=== PATIENT | female | born 1950 | race Caucasian/White ===

== ENCOUNTER 2019-03-10 17:42 | Emergency (ER) | payer OTHER ==
[~2019-03-10] VITALS: Ht 142.2 cm; Wt 55.9 kg
[2019-03-10 17:57] VITALS: Ht 142.2 cm; Wt 55.9 kg
[2019-03-10] MEDS ORDERED: ONDANSETRON 4 MG INJ IV STA (18:08)
[2019-03-10] MEDS ORDERED: morphine 4 MG/ML VIAL IV STA (18:08)
[2019-03-10] MEDS ORDERED: POTASSIUM CHLORIDE (SR) 20 MEQ TAB PO STA (20:31)
[2019-03-10] MEDS ORDERED: ONDA4TAB14 PO (20:34)
[2019-03-10] MEDS ORDERED: IBUP-1542 PO (20:34)
--- NOTE | 2019-03-10 20:53 | ERD ---
ER Documentation Chief Complaint Chief Complaint n/v & crespo x 1 day. vomited en route HPI Patient is a 68-year-old female who presents with headache and abdominal pain. The patient had upper epigastric abdominal pain. The patient was brought in by ambulance. She said this started a few days ago. She tried Tylenol for pain. She has had no fevers. Upon review of old medical records this is the patient's second visit to the ER since October 2018. ROS All systems reviewed and are negative except as per history of present illness. Medications Home Meds Active Scripts Ondansetron (Ondansetron Odt) 4 Mg Tab.rapdis, 4 MG PO Q6H PRN for NAUSEA AND/OR VOMITING, #10 TAB Prov:DONTAE LITTLEJOHN MD 03/10/19 Ibuprofen* (Motrin*) 600 Mg Tab, 600 MG PO Q6H PRN for PAIN AND OR ELEVATED TEMP, #30 TAB Prov:DONTAE LITTLEJOHN MD 03/10/19 Allergies Allergies: Coded Allergies: No Known Allergy (Unverified , 10/22/18) PMhx/Soc History of Surgery: Yes (right abdomen) Anesthesia Reaction: No Hx Neurological Disorder: No Hx Respiratory Disorders: No Hx Cardiac Disorders: No Hx Psychiatric Problems: No Hx Miscellaneous Medical Probl: Yes (DM) Hx Alcohol Use: No Hx Substance Use: No Hx Tobacco Use: No Smoking Status: Never smoker FmHx Family History: No diabetes Physical Exam Vitals Vital Signs Date Temp Pulse Resp B/P (MAP) Pulse Ox O2 O2 Flow FiO2 Time Delivery Rate 03/10/19 87 12 136/71 100 Room Air 19:53 (92) 03/10/19 98.8 63 20 175/79 100 Nasal 18:37 (111) Cannula 03/10/19 97.6 68 18 172/96 98 17:57 (121) Physical Exam Const: No acute distress Head: Atraumatic Eyes: Normal Conjunctiva ENT: Normal External Ears, Nose and Mouth. Neck: Full range of motion. No meningismus. Resp: Clear to auscultation bilaterally Cardio: Regular rate and rhythm, no murmurs Abd: Soft, diffuse tenderness to palpation without rebound or guarding Skin: No petechiae or rashes Back: No midline or flank tenderness Ext: No cyanosis, or edema Neur: Awake and alert, cranial nerves II through XII are intact, strength is 5 out of 5 in all 4 extremities Psych: Normal Mood and Affect Result Diagram: 03/10/19182903/10/191829 Results 24 hrs Laboratory Tests Test 03/10/19 18:30 White Blood Count 5.2 10^3/ul Red Blood Count 4.41 10^6/ul Hemoglobin 13.1 g/dl Hematocrit 39.8 % Mean Corpuscular Volume 90.2 fl Mean Corpuscular Hemoglobin 29.7 pg Mean Corpuscular Hemoglobin Concent 32.9 g/dl Red Cell Distribution Width 14.2 % Platelet Count 180 10^3/UL Mean Platelet Volume 10.1 fl Immature Granulocytes % 0.400 % Neutrophils % 72.6 % Lymphocytes % 15.3 % Monocytes % 9.5 % Eosinophils % 1.6 % Basophils % 0.6 % Nucleated Red Blood Cells % 0.0 /100WBC Immature Granulocytes # 0.020 10^3/ul Neutrophils # 3.8 10^3/ul Lymphocytes # 0.8 10^3/ul Monocytes # 0.5 10^3/ul Eosinophils # 0.1 10^3/ul Basophils # 0.0 10^3/ul Nucleated Red Blood Cells # 0.0 10^3/ul Sodium Level 140 mmol/L Potassium Level 3.0 mmol/L Chloride Level 96 mmol/L Carbon Dioxide Level 35 mmol/L Anion Gap 9 Blood Urea Nitrogen 12 mg/dl Creatinine 0.40 mg/dl Est Glomerular Filtrat Rate mL/min > 60 mL/min Glucose Level 251 mg/dl Calcium Level 9.0 mg/dl Total Bilirubin 0.4 mg/dl Direct Bilirubin 0.00 mg/dl Indirect Bilirubin 0.4 mg/dl Aspartate Amino Transf (AST/SGOT) 39 IU/L Alanine Aminotransferase (ALT/SGPT) 34 IU/L Alkaline Phosphatase 127 IU/L Total Protein 7.9 g/dl Albumin 4.2 g/dl Globulin 3.70 g/dl Albumin/Globulin Ratio 1.13 Lipase 65 U/L Ethyl Alcohol Level < 10.0 mg/dl Current Medications Medications Dose Sig/Brooke Start Time Status Last (Trade) Ordered Route PRN Stop Time Admin Dose Reason Admin Morphine 4 mg ONCE STAT 03/10/19 DC 03/10/19 Sulfate IV 18:08 18:43 (morphine) 03/10/19 18:09 Ondansetron 4 mg ONCE STAT 03/10/19 DC 03/10/19 HCl (Zofran IV 18:08 18:42 Inj) 03/10/19 18:09 Potassium 40 meq ONCE STAT 03/10/19 DC 03/10/19 Chloride PO 20:31 20:46 (Klor-Con 20) 03/10/19 20:43 Procedures/MDM CT brain read by radiology. CT abdomen pelvis read by radiology. Patient is a 68-year-old female who presents with headache and abdominal pain. CT brain was negative. Laboratory studies show mild hypokalemia and the patient was given potassium by mouth. CT abdomen pelvis shows possible early small bowel obstruction but no complete small bowel obstruction at this time. I do not believe the patient requires admission to the hospital at this time. On reevaluation the patient looks much improved and will be discharged. She will be discharged with prescription for ibuprofen and Zofran. She will need to follow-up closely with her primary doctor within 24 to 48 hours. Departure Diagnosis: Primary Impression: Small bowel obstruction Additional Impressions: Headache Headache type: unspecified Headache chronicity pattern: acute headache I ntractability: not intractable Qualified Codes: R51 - Headache Abdominal pain Abdominal location: unspecified location Qualified Codes: R10.9 - Unspecified abdominal pain Condition: Fair Patient Instructions: Abdominal Pain, Self-Care for Headaches Referrals: Your doctor Additional Instructions: Llame al doctor MAANA y darleen cristóbal ELIZABETH PARA DENTRO DE 1-2 MELENDEZ.Dgale a la secretaria que nosotros le instruimos hacer esta elizabeth.Avise o llame si rodríguez condicin se empeora antes de la elizabeth. Regresa aqui si peor o no mejor. DONTAE LITTLEJOHN MD Mar 10, 2019 20:53
[2019-03-10 20:57] VITALS: BP 133/90; PULSE 94; RESP 16
== END 2019-03-10 21:03 | disposition home or self-care (01) ==
LOC: E/R 17:42
DX: K56.699 Other intestinal obstruction unspecified as to partial versus complete obstruction (principal); E11.9 Type 2 diabetes mellitus without complications; R51 Headache
CPT/HCPCS: 36415; 70450; 74176; 76705; 80053; 80307; 83690; 85025; 96374; 96375; 99285; J2270; J2405